=== PATIENT | male | born 2000 ===

== ENCOUNTER 2020-12-02 12:28 | Emergency (ER) | payer SELFPAY ==
[~2020-12-02] VITALS: Ht 167.6 cm; Wt 79.5 kg
[2020-12-02 12:30] VITALS: BP 127/58
[2020-12-02] MEDS ORDERED: IBUP-1022 PO (12:37)
[2020-12-02 14:39] LABS: RSV AMPLIFICATION NEGATIVE (NEGATIVE)
== END 2020-12-02 15:00 | disposition left against medical advice (07) ==
LOC: M ED 12:28
DX: Z53.29 Procedure and treatment not carried out because of patient's decision for other reasons (principal)